=== PATIENT | male | born 1945 | race Caucasian/White ===

== ENCOUNTER 2016-11-02 13:09 | Emergency (ER) | payer OTHER, BC ==
[2016-11-02] MEDS ORDERED: ASPIRIN 81 MG CHEWABLE TABLETS PO ONE (13:18)
[2016-11-02 13:22] VITALS: BMI 33.9
[2016-11-02] MEDS ORDERED: ASPIRIN 81 MG CHEWABLE TABLETS ONE (13:47)
--- NOTE | 2016-11-02 13:57 | PDOC ---
History of Present Illness - General Chief Complaint: Chest Pain Stated Complaint: CHEST PAIN Time Seen by Provider: 11/02/16 13:16 History Source: Patient Exam Limitations: No Limitations - History of Present Illness Initial Comments: 11/02/16 14:11 71y M hx of ?irregular heart beat, peptic ulcers, presents with complaint of several episodes of mild chest discomfort, lightheadness, nausea, sob, diaphoresis, and L arm discomfort lasting for approx 15 min this morning - pt staes currently he feels improved, but still is not back to baseline. pt denies any hx of cardiac disorder, but pt does not hvae a PMD (he goes to a walk in clinic). social> remote smoking brother has hx of CAD in his 40s-50s Past History - Past Medical History Allergies/Adverse Reactions: Allergies Allergy/AdvReac Type Severity Reaction Status Date / Time strawberry Allergy Intermediate Rash Verified 11/02/16 13:16 No Known Drug Allergies Allergy Verified 11/02/16 13:16 Home Medications: Ambulatory Orders Apremilast [Otezla] 1 each PO DAILY 11/02/16 Cholecalciferol (Vitamin D3) [Vitamin D3] 4,000 unit PO DAILY 11/02/16 Cyanocobalamin (Vitamin B-12) [Vitamin B-12] 250 mcg PO DAILY 11/02/16 Folic Acid 1 mg PO DAILY 11/02/16 Glucosamine HCl/Chondr Flores A Na [Osteo Bi-Flex Caplet] 1 each PO DAILY 11/02/16 Methotrexate [Mexate -] 5 mg PO Q7D 11/02/16 Multivits,Ca,Min/Iron/FA/Lycop [Centrum Men's Tablet] 1 each PO DAILY 11/02/16 [place]-3 Fatty Acids [Fish Oil] 300 mg PO DAILY 11/02/16 Anemia: No Asthma: No Cancer: No Cardiac Disorders: Yes (ARRYTHMIA ? NO PROBLEMS) CVA: No COPD: No CHF: No Dementia: No Diabetes: No GI Disorders: Yes (PEPTIC ULCER IN DEC DUE TO ADVIL (RESOLVED)) Disorders: No HTN: No Hypercholesterolemia: No Liver Disease: No Seizures: No Thyroid Disease: No Other medical history: RA. BURSITIS. - Surgical History Abdominal Surgery: Yes (RIGHT INQUINAL HERNIA 2010) Appendectomy: Yes (1976) Cardiac Surgery: No Cholecystectomy: No Lung Surgery: No Neurologic Surgery: No Orthopedic Surgery: Yes (LEFT TKR 03/2011/RIGHT KNEE ARTHROSCOPY 2009/RIGHT WRIST ) - Psycho/Social/Smoking Cessation Hx Anxiety: No Suicidal Ideation: No Smoking History: Former smoker Have you smoked in the past 12 months: No If you are a former smoker, when did you quit?: 1974 Information on smoking cessation initiated: No Hx Alcohol Use: No Drug/Substance Use Hx: No Substance Use Type: None Hx Substance Use Treatment: No Cardiac Specific PMH - Complaint Specific PMHX Pacemaker: No Review of Systems - Review of Systems Able to Perform ROS?: Yes Comments:: 11/02/16 14:17 Constitutional - +diaphoresis no reported Fever, Chills, weakness, HEENT: no reported vision changes, sore throat Respiratory: no reported cough, sob, hemoptysis Cardiac: +chest pain, light headedness, no reported palpitations, , leg swelling Abd/GI: +nausea, vomiting, no reported abd pain, blood per rectum, melena, diarrhea : no reported dysuria, frequency, discharge Musculskelatal - no reported back pain, joint swelling skin - no reported bruising, erythema, rash neurological: no reported headache, numbness, focal weakness, tingling, ataxia, weakness hematologic: no reported anemia, easy bruising, easy bleeding *Physical Exam - Vital Signs Last Vital Signs Temp Pulse Resp BP Pulse Ox 98.7 F 83 15 132/59 99 11/02/16 16:25 11/02/16 16:25 11/02/16 16:25 11/02/16 16:25 11/02/16 16:25 - Physical Exam Comments: 11/02/16 14:23 GENERAL: The patient is awake, alert, and fully oriented, Nontoxic - in no acute distress. HEAD: Normocephalic, atraumatic. EYES: extraocular movements intact, sclera anicteric, conjunctiva clear. ENT: Normal voice, Moist mucous membranes. NECK: Normal range of motion, supple LUNGS: Breath sounds equal, clear to auscultation bilaterally. No wheezes, no rhonchi, no rales. HEART: Regular rate and rhythm, normal S1 and S2 without murmur, rub or gallop. ABDOMEN: Soft, nontender, normoactive bowel sounds. No guarding, no rebound. No CVA tenderness EXTREMITIES: Normal range of motion, +mild edmea b/l No clubbing or cyanosis. No cords, erythema, or tenderness. NEUROLOGICAL: No facial assymetry, Normal speech, moving all 4 extremities spontaneously and symmetrically PSYCH: Normal mood, normal affect. SKIN: Warm, Dry, normal turgor, Heart Score/ECG Review - History History: Moderately suspicious - Electrocardiogram EKG: Non specific repolarization disturbance - Age Age: >/= 65 - Troponin Troponin: </= normal limit - ECG Impressions Comment:: 11/02/16 14:25 Twelve-lead EKG was performed and reviewed by me. There is normal sinus rhythm with a normal rate. Rate of [address] appearance on V1/V2 ?PAPA 11/02/16 14:53 repeat ekg at 14:40 noted for PAPA of anteriorV1 and V2 c/w [place] cardiology paged pt will be started on heparin gtt ED Treatment Course - LABORATORY CBC & Chemistry Diagram: 11/02/16 13:18 11/02/16 13:18 - ADDITIONAL ORDERS Additional order review: 11/02/16 13:18 RBC 3.11 L MCV 109.4 H MCHC 34.4 RDW 15.0 MPV 8.0 Neutrophils % 84.4 H Lymphocytes % 4.7 L Monocytes % 10.0 Eosinophils % 0.7 Basophils % 0.2 - RADIOLOGY Radiology Studies Ordered: Category Date Time Status CHEST X-RAY PORTABLE* [RAD] Stat Radiology 11/02/16 13:18 Completed - Medications Given in the ED: ED Medications Discontinued Medications Generic Name Dose Route Start Last Admin Trade Name Freq PRN Reason Stop Dose Admin Aspirin 162 mg 11/02/16 13:18 11/02/16 13:57 Asa - PO 11/02/16 13:19 162 mg ONCE ONE Administration Atorvastatin Calcium 80 mg 11/02/16 15:37 11/02/16 15:50 Lipitor - PO 11/02/16 15:38 80 mg ONCE ONE Administration Clopidogrel Bisulfate 600 mg 11/02/16 15:09 11/02/16 15:40 Plavix - PO 11/02/16 15:10 600 mg ONCE ONE Administration Heparin Sodium (Porcine) 5,000 unit 11/02/16 14:45 11/02/16 15:13 Heparin - IVPUSH 11/02/16 14:46 5,000 unit ONCE ONE Administration Heparin Sodium/Dextrose 500 mls @ 20 mls/hr 11/02/16 14:45 11/02/16 15:13 Heparin Infusion - IVPB 20 mls/hr TITR VÍCTOR Administration Protocol 1,000 UNITS/HR Metoprolol Tartrate 25 mg 11/02/16 16:00 11/02/16 16:06 Lopressor - PO 25 mg BID VÍCTOR Administration Nitroglycerin 0.4 mg 11/02/16 14:25 11/02/16 15:12 Nitrostat - SL 11/02/16 14:26 0.4 mg ONCE ONE Administration Nitroglycerin 1 inch 11/02/16 15:37 11/02/16 15:50 Nitro-Bid 2% Paste - TD 11/02/16 15:38 1 inch ONCE ONE Administration Medical Decision Making - Medical Decision Making 11/02/16 15:12 71y M presenting with intermittent episodes of cp/diaprhoesis/arm tingling resolved with ntg trop neg x 1 ekg shows nonspeicifc changes originally, but repeat ekg when pt developed cp c/ w with STEMI case dw dr. romero agreed likely stemi will transfer pt to [facility] for catherization pt started on heparin and given plavix pain is currently improved CRITICAL CARE DOCUMENTATION: I spent ~35 minutes of Critical Care time, excluding separately billable procedures, involving high complexity decision making to assess, manipulate and support vital system function(s) to treat single or multiple vital organ system failure and/or to prevent further life threatening deterioration of the patient' s condition. 11/02/16 21:41 pt trasnferred to [facility] under care of dr. booker for cath The patient was seen and examined to determine medical stability. The patient is MEDICALLY STABLE at this time. Labs, EKG, radiological studies were ordered to expedite the patient's care. I certify that I have discussed with the patient and/or his goodwill representative the following risks and benefits of the proposed transfer. Risks include worsening of patients condition during transport,auto accident, or permanent disability. Benefits include receiving specialized care not available at this facility. I certify that, based on the information available at this time, the medical benefits reasonably expected from the provision of appropriate medical treatment at the receiving facility outweigh the increased risk to the patient. I believe the patient/relative/guardian understands what I have explained and answered. The patient will be transferred to the service of Dr. Hughes at [facility] for catherization and further management. *DC/Admit/Observation/Transfer Diagnosis at time of Disposition: STEMI (ST elevation myocardial infarction) Qualifiers: Involved coronary artery: unspecified coronary artery Qualified Code(s): I21.3 - ST elevation (STEMI) myocardial infarction of unspecified site - Discharge Dispostion Disposition: TRANSFER ACUTE CARE/OTHER HOSP Condition at time of disposition: Critical Admit: No - Referrals Referrals: STAFF,NOT ON [Primary Care Provider] -
[2016-11-02 14:11] LABS: BASOPHIL 0.2 % (0-2.0); EOSINOPHIL 0.7 % (0-4.5); MCH 37.6 pg (25.7-33.7); MCHC 34.4 g/dl (32.0-35.9); MEAN CELL VOLUME 109.4 fl (80-96); NEUTROPHILS 84.4 % (42.8-82.8); PLATELET COUNT 144 K/MM3 (134-434); WHITE BLOOD COUNT 5.4 K/mm3 (4.0-10.0)
[2016-11-02] MEDS ORDERED: NITROGLYCERIN SUBLINGUAL 1/150 0.4 MG TAB SL ONE (14:25)
[2016-11-02 14:27] LABS: INR 1.14 (0.82-1.09); PROTHROMBIN TIME (PATIENT) 12.6 SEC (9.98-11.88)
[2016-11-02 14:29] LABS: ALBUMIN 3.8 g/dl (3.4-5.0); ANION GAP 7 (8-16); BILIRUBIN,TOTAL 0.7 mg/dL (0.2-1.0); CALCIUM 8.6 mg/dL (8.5-10.1); CO2 25 mmol/L (21-32); GLUCOSE,RANDOM 115 mg/dL (74-106); SGOT/AST 31 U/L (15-37); SGPT/ALT 46 U/L (12-78); TOT PROT 8.3 g/dl (6.4-8.2)
[2016-11-02 14:32] LABS: ALK PHOS 78 U/L (45-117); TROPONIN I 0.02 ng/ml (0.00-0.05)
[2016-11-02] MEDS ORDERED: HEPARIN NA (PORCINE) 5,000 UNITS/ML 1ML VIAL IVPUSH ONE (14:45)
[2016-11-02] MEDS ORDERED: HEPARIN INFUSION - 500 ML IVPB SCH (14:45)
[2016-11-02] MEDS ORDERED: HEPARIN INFUSION - 500 ML IVPB ONE (14:48)
[2016-11-02] MEDS ORDERED: NITROGLYCERIN SUBLINGUAL 1/150 0.4 MG TAB ONE (14:48)
[2016-11-02] MEDS ORDERED: HEPARIN NA (PORCINE) 5,000 UNITS/ML 1ML VIAL ONE (14:48)
[2016-11-02] MEDS ORDERED: CLOPIDOGREL BISULFATE 300 MG TABLET PO ONE (15:09)
--- NOTE | 2016-11-02 15:11 | CONSULT ---
Consult Consult Specialty:: cardiology Reason for Consultation:: chest pain; EKG changes - History of Present Illness History of Present Illness: 71y white man with PM hx of ?irregular heart beat, peptic ulcers,obesity, presents with complaint of several episodes of mild chest discomfort, lightheadness, nausea, sob, diaphoresis, and L arm discomfort lasting for approx 15 min this morning; it started at about 930 am, abated after 15 minutes , but returned an hour later and persisted until sl NTG was given by EMS.- pt staes currently he feels improved, but still is not back to baseline. pt denies any hx of cardiac disorder, but pt does not hvae a PMD (he goes to a walk in clinic). social> remote smoking brother has hx of CAD in his 40s-50s - History Source History Provided By: Patient, Family Member, Medical Record Limitations to Obtaining History: No Limitations - Past Surgical History Past Surgical History: Yes: Joint Replacement (knee and hip) - Alcohol/Substance Use Hx Alcohol Use: No - Smoking History Smoking history: Former smoker Have you smoked in the past 12 months: No If you are a former smoker, when did you quit?: 1974 Home Medications - Allergies Allergies/Adverse Reactions: Allergies Allergy/AdvReac Type Severity Reaction Status Date / Time strawberry Allergy Intermediate Rash Verified 11/02/16 13:16 No Known Drug Allergies Allergy Verified 11/02/16 13:16 - Home Medications Home Medications: Ambulatory Orders Apremilast [Otezla] 1 each PO DAILY 11/02/16 Cholecalciferol (Vitamin D3) [Vitamin D3] 4,000 unit PO DAILY 11/02/16 Cyanocobalamin (Vitamin B-12) [Vitamin B-12] 250 mcg PO DAILY 11/02/16 Folic Acid 1 mg PO DAILY 11/02/16 Glucosamine HCl/Chondr Flores A Na [Osteo Bi-Flex Caplet] 1 each PO DAILY 11/02/16 Methotrexate [Mexate -] 5 mg PO Q7D 11/02/16 Multivits,Ca,Min/Iron/FA/Lycop [Centrum Men's Tablet] 1 each PO DAILY 11/02/16 [place]-3 Fatty Acids [Fish Oil] 300 mg PO DAILY 11/02/16 Family Disease History - Family Disease History Family Disease History: Diabetes: Brother (CABG in his 50s) Review of Systems - Review of Systems Constitutional: reports: Other (chest pain 01/07) Eyes: reports: No Symptoms HENT: reports: No Symptoms Neck: reports: No Symptoms Cardiovascular: reports: Chest Pain Gastrointestinal: reports: No Symptoms Genitourinary: reports: No Symptoms Breasts: reports: No Symptoms Reported Integumentary: reports: No Symptoms Neurological: reports: No Symptoms Endocrine: reports: No Symptoms Hematology/Lymphatic: reports: No Symptoms Psychiatric: reports: No Symptoms - Risk Factors Known Risk Factors: Yes: Age, Family History, Gender, Physical Inactivity, Smoking (former), Other (obestiy; sedentary) Vital Signs: Vital Signs Temperature 98.2 F 11/02/16 13:16 Pulse Rate 83 11/02/16 13:16 Respiratory Rate 20 11/02/16 13:16 Blood Pressure 123/63 11/02/16 13:16 O2 Sat by Pulse Oximetry (%) 100 11/02/16 13:16 Constitutional: Yes: Anxious Eyes: Yes: WNL HENT: Yes: WNL Neck: Yes: WNL Respiratory: Yes: WNL Gastrointestinal: Yes: WNL Renal/: No: Anuria Cardiovascular: Yes: Regular Rate and Rhythm JVD: No Carotid Bruit: No PMI: Non-Displaced Heart Sounds: Yes: S1, S2, S4 Musculoskeletal: Yes: WNL Extremities: Yes: WNL Edema: No Peripheral Pulses WNL: Yes Integumentary: Yes: WNL Neurological: Yes: WNL Psychiatric: Yes: WNL - Other Data Labs, Other Data: CBC, BMP 11/02/16 13:18 11/02/16 13:18 INR, PTT INR 1.14 (0.82-1.09) 11/02/16 13:18 Troponin, BNP 11/02/16 13:18 Troponin I 0.02 Troponin, BNP 11/02/16 13:18 Troponin I 0.02 Abnormal Lab Results 11/02/16 11/02/16 13:18 13:18 RBC 3.11 L Hct 34.0 L MCV 109.4 H Neutrophils % 84.4 H Lymphocytes % 4.7 L Anion Gap 7 L Random Glucose 115 H Total Protein 8.3 H Imaging - Results EKG: Image Reviewed (NSR; ST elevation V1, V2; mild ST depressionI, aVL) Problem List - Problems (1) STEMI (ST elevation myocardial infarction) Assessment/Plan: ASA 325 mg Clopidogrel 600 mg IV heparin Atorvastatin 80 mg NTG paste. Metoprolol tartrat3 25 mg bid. Transfer to Replaced By [facility]) for coronary angiogram. Code(s): I21.3 - ST ELEVATION (STEMI) MYOCARDIAL INFARCTION OF UNSP SITE Qualifiers: Involved coronary artery: unspecified coronary artery Qualified Code(s) : I21.3 - ST elevation (STEMI) myocardial infarction of unspecified site
[2016-11-02] MEDS ORDERED: CLOPIDOGREL BISULFATE 300 MG TABLET ONE (15:17)
[2016-11-02] MEDS ORDERED: ATORVASTATIN CA 80 MG TABLET (FP) PO ONE (15:37)
[2016-11-02] MEDS ORDERED: NITROGLYCERIN 2% OINTMENT - 1GM PACKET TD ONE ×2 (15:37→15:43)
[2016-11-02] MEDS ORDERED: ATORVASTATIN CA 80 MG TABLET (FP) ONE (15:43)
[2016-11-02] MEDS ORDERED: METOPROLOL TARTRATE 25 MG TABLET (FP) ONE (15:51)
[2016-11-02] MEDS ORDERED: METOPROLOL TARTRATE 25 MG TABLET (FP) PO SCH (16:00)
[2016-11-02 16:25] VITALS: BP 132/59
[2016-11-02 16:26] VITALS: PULSE 83; TEMP 98.7
--- NOTE | 2016-11-04 15:16 | EKG ---
Test Reason : Blood Pressure : / mmHG Vent. Rate : 080 BPM Atrial Rate : 080 BPM P-R Int : 202 ms QRS Dur : 102 ms QT Int : 402 ms P-R-T Axes : -08 -11 196 degrees QTc Int : 463 ms NORMAL SINUS RHYTHM MODERATE VOLTAGE CRITERIA FOR LVH, MAY BE NORMAL VARIANT T WAVE ABNORMALITY, CONSIDER INFERIOR ISCHEMIA PROLONGED QT ABNORMAL ECG NO PREVIOUS ECGS AVAILABLE Confirmed by KATIE RAINEY, JAMIE ([id number]) on 11/04/2016 3:16:10 PM Referred By: Confirmed By:JAMIE WILSON MD
--- NOTE | 2016-11-04 16:28 | EKG ---
Test Reason : Blood Pressure : / mmHG Vent. Rate : 082 BPM Atrial Rate : 082 BPM P-R Int : 212 ms QRS Dur : 096 ms QT Int : 382 ms P-R-T Axes : -08 -11 181 degrees QTc Int : 446 ms SINUS RHYTHM WITH 1ST DEGREE A-V BLOCK MINIMAL VOLTAGE CRITERIA FOR LVH, MAY BE NORMAL VARIANT ST ELEVATION CONSIDER ANTERIOR INJURY OR ACUTE INFARCT * ACUTE NV ABNORMAL ECG WHEN COMPARED WITH ECG OF 02-NOV-2016 13:18, NONSPECIFIC T WAVE ABNORMALITY HAS REPLACED INVERTED T WAVES IN INFERIOR LEADS Confirmed by KATIE RAINEY, JAMIE ([id number]) on 11/04/2016 4:28:27 PM Referred By: Confirmed By:JAMIE WILSON MD
== END 2016-11-02 16:26 | disposition short-term general hospital (02) ==
LOC: JER 13:09
PROC: 3E033GC Introduction of Other Therapeutic Substance into Peripheral Vein, Percutaneous Approach (ICD-10-PCS; principal; 2016-11-02)
DX: I21.3 ST elevation (STEMI) myocardial infarction of unspecified site (principal); M06.9 Rheumatoid arthritis, unspecified; Z87.11 Personal history of peptic ulcer disease; M71.9 Bursopathy, unspecified
CPT/HCPCS: 36415; 71010-TC; 80053; 82550; 83690; 84484; 85025; 85610; 93005; 93010; 96365; 99285-25; J1644